=== PATIENT | male | born 1955 | race Caucasian/White ===

== ENCOUNTER 2018-01-18 11:35 | Emergency (ER) | payer MEDICARE, OTHER ==
[2018-01-18 11:55] VITALS: RESP 20; TEMP 97.6; O2SAT 97
[2018-01-18 12:08] LABS: HEMATOCRIT 38 % (39-53); MEAN CORPUSCULAR HEMOGLOBIN 26.6 pg (27.0-32.0); MEAN CORPUSCULAR HGB CONC 34.5 gm/dl (32.0-36.0)
[2018-01-18 12:17] LABS: MEAN CORPUSCULAR VOLUME 77 fL (80-100)
[2018-01-18 12:20] LABS: ALBUMIN 3.4 gm/dl (3.4-5.0); BILIRUBIN,TOTAL 0.4 mg/dl (0.2-1.0); CALCIUM 8.6 mg/dl (8.5-10.1); CARBON DIOXIDE 26.1 mEq/L (21-32); CREATININE 1.19 mg/dl (0.80-1.30); POTASSIUM 4.4 mMol/L (3.5-5.1); TOTAL PROTEIN 6.3 gm/dl (6.4-8.2)
[2018-01-18 12:53] LABS: BAND NEUTROPHILS % (MANUAL) 1 %; BASOPHILS % (MANUAL) 0 % (0-3); EOSINOPHILS % (MANUAL) 2 % (0-9); LYMPHOCYTES % (MANUAL) 23 % (10-50); MONOCYTES % (MANUAL) 9 % (0-12); NEUTROPHILS % (MANUAL) 65 % (37-80); PLATELET MORPHOLOGY COMMENT DECREASED
[2018-01-18 12:54] LABS: OVALOCYTES PRESENT; POIKILOCYTOSIS SLIGHT AMT
[2018-01-18] MEDS ORDERED: INSULIN HUMAN REGULAR 100 U/ML SOL SC ONE (13:21)
[2018-01-18] MEDS ORDERED: INSULIN HUMAN REGULAR 100 U/ML SOL ONE (13:34)
[2018-01-18 13:50] VITALS: BP 116/73; PULSE 79
[2018-01-18] MEDS ORDERED: QUETIAPINE FUMARATE 25 MG TAB PO SCH (17:00)
[2018-01-18] MEDS ORDERED: QUETIAPINE FUMARATE 25 MG TAB ONE (17:04)
== END 2018-01-18 17:27 | DRG 885 ==
LOC: ED 11:35 → SUPCPDRO 11:35 → ED 17:27
DX: F20.0 Paranoid schizophrenia (principal); E11.65 Type 2 diabetes mellitus with hyperglycemia; Z79.4 Long term (current) use of insulin; Z79.84 Long term (current) use of oral hypoglycemic drugs
CPT/HCPCS: 80053; 82962; 85007; 85027; 96372; 99283; 99284; J1815; A9270-GY